=== PATIENT | male | born 1970 | race Caucasian/White ===

== ENCOUNTER 2020-04-09 13:46 | Outpatient (CLI) | payer OTHER | END 2020-04-09 23:59 | disposition home or self-care (01) | LOC: RAD 13:46 | DX: R13.12 Dysphagia, oropharyngeal phase (principal); K21.9 Gastro-esophageal reflux disease without esophagitis | CPT/HCPCS: 74230 ==

== ENCOUNTER 2022-10-15 15:56 | Outpatient (CLI) | payer OTHER ==
[~2022-10-15] VITALS: Ht 165.1 cm; Wt 65.8 kg
[2022-10-15] MEDS ORDERED: albuterol 2.5 MG/3 ML nebule NEB ONE (16:35)
[2022-10-15 16:42] VITALS: PULSE 83; RESP 12; O2SAT 95
== END 2022-10-15 23:59 | disposition home or self-care (01) ==
LOC: RT 15:56
PROVIDERS: ATTEND Chiropractor
DX: J40 Bronchitis, not specified as acute or chronic (principal); R94.2 Abnormal results of pulmonary function studies
CPT/HCPCS: 94060; 94760

== ENCOUNTER 2022-11-12 10:16 | Emergency (ER) | payer OTHER ==
[~2022-11-12] VITALS: Ht 154.9 cm; Wt 65.0 kg
[2022-11-12 11:08] LABS: BASOPHILS % (AUTO) 0.5 % (0-1); EOSINOPHILS # (AUTO) 0.2 X10'3 (0-0.9); EOSINOPHILS % (AUTO) 2.8 % (0-6); HEMATOCRIT 43.3 % (42.0-52.0); HEMOGLOBIN 14.9 g/dl (14.0-17.9); LYMPHOCYTES # (AUTO) 1.5 X10'3 (1.1-4.8); MEAN CORPUSCULAR HEMOGLOBIN 31.1 PG (27.0-31.0); MEAN CORPUSCULAR HGB CONC 34.3 g/dL (33.0-36.5); MEAN CORPUSCULAR VOLUME 90.5 FL (78-98); MEAN PLATELET VOLUME 8.8 FL (7.4-10.4); MONOCYTES # (AUTO) 0.6 X10'3 (0-0.9); MONOCYTES % (AUTO) 8.4 % (2-12); NEUTROPHILS # (AUTO) 4.6 X10'3 (1.8-7.7); NEUTROPHILS % (AUTO) 66.3 % (42-75); PLATELET COUNT 252 X10'3 (140-440); RED BLOOD COUNT 4.79 X10'6 (4.70-6.10)
[2022-11-12 11:15] LABS: BILIRUBIN,URINE NEGATIVE (Neg); CLARITY,URINE CLEAR (Clear); COLOR,URINE STRAW (Yellow); GLUCOSE, URINE 500 mg/dl (Neg); KETONES,URINE NEGATIVE (Neg); LEUKOCYTE ESTERASE ,URINE NEGATIVE (Neg); NITRITES, URINE NEGATIVE (Neg); OCCULT BLOOD,URINE NEGATIVE (Neg); PROTEIN,URINE NEGATIVE (Neg); UA COLLECTION TYPE NON-SPECIFIED; UROBILINOGEN,URINE 0.2 E.U/dL (0.2-1.0)
[2022-11-12 11:18] LABS: ALANINE AMINOTRANSFERASE 45 U/L (12-78); ALBUMIN 3.4 G/DL (3.4-5.0); ALBUMIN/GLOBULIN RATIO 0.9 (1.1-1.5); ALKALINE PHOSPHATASE 90 IU/L (46-116); ANION GAP 7 (8-16); ASPARTATE AMINO TRANSFERASE 20 U/L (10-37); BILIRUBIN,TOTAL 0.3 MG/DL (0.1-1.0); BLOOD UREA NITROGEN 9 MG/DL (7-18); BUN/CREATININE RATIO 10.2 (10.0-20.0); CALCIUM 9.1 MG/DL (8.5-10.1); CHLORIDE 102 MMOL/L (99-107); CREATININE 0.88 MG/DL (0.60-1.10); GLUCOSE 245 MG/DL (70-104); POTASSIUM 4.2 MMOL/L (3.5-5.1); SODIUM 138 MMOL/L (135-145); TOTAL CARBON DIOXIDE 29.3 MMOL/L (24-32); TOTAL PROTEIN 7.2 G/DL (6.4-8.2); eCRCL 73 ML/MIN; eGFR > 90 ML/MIN
[2022-11-12 12:36] VITALS: TEMP 97.6
[2022-11-12] MEDS ORDERED: PSYL1PAC9 PO (13:54)
[2022-11-12 14:03] VITALS: BP 144/85; PULSE 80; RESP 16; O2SAT 97
== END 2022-11-12 14:32 | disposition home or self-care (01) ==
LOC: ER 10:17
DX: R03.0 Elevated blood-pressure reading, without diagnosis of hypertension (principal); K59.00 Constipation, unspecified; R19.7 Diarrhea, unspecified; E11.9 Type 2 diabetes mellitus without complications; Z88.0 Allergy status to penicillin; Z88.1 Allergy status to other antibiotic agents; Z88.8 Allergy status to other drugs, medicaments and biological substances; Z91.018 Allergy to other foods; Z79.899 Other long term (current) drug therapy
CPT/HCPCS: 36415; 71045; 80053; 81003; 84145; 85025; 87040; 99284

== ENCOUNTER 2023-04-04 01:05 | Observation (INO) | payer OTHER, MEDICARE ==
[~2023-04-04] VITALS: Ht 165.1 cm; Wt 68.2 kg
[~2023-04-04 01:05] MED LIST: PSYL1PAC9 PO
[2023-04-04 02:30] LABS: BASOPHILS % (AUTO) 0.1 % (0-1); EOSINOPHILS # (AUTO) 0.2 X10'3 (0-0.9); MEAN CORPUSCULAR VOLUME 92.2 FL (78-98); MONOCYTES # (AUTO) 1.3 X10'3 (0-0.9); PLATELET COUNT 198 X10'3 (140-440)
[2023-04-04 02:31] LABS: EOSINOPHILS % (AUTO) 1.5 % (0-6); HEMATOCRIT 45.3 % (42.0-52.0); HEMOGLOBIN 15.3 g/dl (14.0-17.9); LYMPHOCYTES # (AUTO) 1.4 X10'3 (1.1-4.8); LYMPHOCYTES % (AUTO) 9.5 % (21-51); MEAN CORPUSCULAR HEMOGLOBIN 31.1 PG (27.0-31.0); MEAN CORPUSCULAR HGB CONC 33.8 g/dL (33.0-36.5); MEAN PLATELET VOLUME 10.3 FL (7.4-10.4); MONOCYTES % (AUTO) 9.1 % (2-12); NEUTROPHILS # (AUTO) 11.4 X10'3 (1.8-7.7); NEUTROPHILS % (AUTO) 79.8 % (42-75); RED BLOOD COUNT 4.92 X10'6 (4.70-6.10); WHITE BLOOD COUNT 14.3 X10'3 (4.5-11.0)
[2023-04-04] MEDS: normal saline 1000ml 1,000 ML IV ONE (02:34)
[2023-04-04 02:40] LABS: ALANINE AMINOTRANSFERASE 50 U/L (12-78); ALBUMIN 3.5 G/DL (3.4-5.0); ALBUMIN/GLOBULIN RATIO 0.9 (1.1-1.5); ALKALINE PHOSPHATASE 78 IU/L (46-116); ANION GAP 10 (8-16); ASPARTATE AMINO TRANSFERASE 12 U/L (10-37); BILIRUBIN,TOTAL 0.3 MG/DL (0.1-1.0); BLOOD UREA NITROGEN 18 MG/DL (7-18); BUN/CREATININE RATIO 19.1 (10.0-20.0); CHLORIDE 103 MMOL/L (99-107); CREATININE 0.94 MG/DL (0.60-1.10); GLUCOSE 239 MG/DL (70-104); POTASSIUM 4.3 MMOL/L (3.5-5.1); SODIUM 139 MMOL/L (135-145); TOTAL CARBON DIOXIDE 26.3 MMOL/L (24-32); TOTAL PROTEIN 7.2 G/DL (6.4-8.2); eCRCL 79 ML/MIN; eGFR 84 ML/MIN
[2023-04-04 02:49] LABS: LIPASE 24 U/L (16-77); PRO BRAIN NATRIURETIC PEPTIDE 64 PG/ML (0-125)
[2023-04-04] MEDS: HYDROcodone/acetaminophen 5mg/325mg tablet PO ONE (03:09)
[2023-04-04] MEDS ORDERED: iohexol 350MG/ML 100ml bottle IV ONE (03:30)
[2023-04-04] MEDS: morphine 4 MG/ML inj SYRINge IV ONE ×3 (04:50→13:28)
[2023-04-04 07:10] LABS: BILIRUBIN,URINE NEGATIVE (Neg); CLARITY,URINE CLEAR (Clear); COLOR,URINE YELLOW (Yellow); GLUCOSE, URINE 100 mg/dl (Neg); KETONES,URINE NEGATIVE (Neg); LEUKOCYTE ESTERASE ,URINE NEGATIVE (Neg); NITRITES, URINE NEGATIVE (Neg); OCCULT BLOOD,URINE NEGATIVE (Neg); PROTEIN,URINE NEGATIVE (Neg); UROBILINOGEN,URINE 0.2 E.U/dL (0.2-1.0)
[2023-04-04] MEDS: normal saline 1000ML IV soln IVB ONE ×2 (07:10→07:31)
[2023-04-04 07:27] LABS: UA COLLECTION TYPE CLN CATCH MIDSTREAM
[2023-04-04] MEDS: dexamethasone sod phosphate 10mg/ml inj IV STA (07:31)
[2023-04-04 07:33] LABS: URINE AMPHETAMINE SCREEN NEGATIVE (Neg); URINE BARBITUATE SCREEN NEGATIVE (Neg); URINE BENZODIAZEPINES SCREEN NEGATIVE (Neg); URINE CANNABINOID SCREEN NEGATIVE (Neg); URINE COCAINE SCREEN NEGATIVE (Neg); URINE METHADONE SCREEN NEGATIVE (Neg); URINE OPIATE SCREEN POSITIVE (Neg); URINE PHENCYCLIDINE SCREEN NEGATIVE (Neg)
[2023-04-04] MEDS: morphine 2 MG/ML inj. syringe IV ONE ×2 (09:45→19:12)
[2023-04-04] MEDS ORDERED: ALBU10.7 (13:41)
[2023-04-04] MEDS ORDERED: ALB0.5UD IH (13:41)
[2023-04-04] MEDS ORDERED: ATOR20TA PO (13:42)
[2023-04-04] MEDS ORDERED: CAPS60CR6 TOP (13:42)
[2023-04-04] MEDS ORDERED: CYAN500T71 PO (13:43)
[2023-04-04] MEDS ORDERED: INSU100V64 SQ (13:44)
[2023-04-04] MEDS ORDERED: LANTUS SUBCUT (13:44)
[2023-04-04] MEDS ORDERED: acetaminophen 325mg tablet PO PRN ×2 (13:45)
[2023-04-04] MEDS ORDERED: magnesium Cl slow-release 64mg tablet PO PRN (13:45)
[2023-04-04] MEDS ORDERED: HYDROcodone/acetaminophen 5mg/325mg tablet PO PRN (13:45)
[2023-04-04] MEDS ORDERED: potassium Cl 40MEQ/1/2NS 520ml 520 ML IV PRN (13:45)
[2023-04-04] MEDS ORDERED: potassium Cl 20 mEq SR tablet PO PRN ×2 (13:45)
[2023-04-04] MEDS ORDERED: ondansetron 4mg rapidly disintigrating tab PO PRN (13:45)
[2023-04-04] MEDS ORDERED: PANT-47 PO (13:45)
[2023-04-04] MEDS ORDERED: ondansetron/PF 4mg/2ml inj IV PRN (13:45)
[2023-04-04] MEDS ORDERED: magnesium 2GM in 50ml NS 50 ML IV PRN (13:45)
[2023-04-04] MEDS ORDERED: mag hydrox/Alum hydrox/simeth 30ml oral suspension PO PRN (13:45)
[2023-04-04] MEDS ORDERED: magnesium 4gm in 100ml NS 100 ML IV PRN (13:45)
[2023-04-04] MEDS ORDERED: MIRT-67 PO (13:45)
[2023-04-04] MEDS ORDERED: magnesium hydroxide 30ml (MOM) UD suspension PO PRN (13:45)
[2023-04-04] MEDS ORDERED: PSYL575P22 PO (13:46)
[2023-04-04] MEDS ORDERED: QUET25TA PO (13:46)
[2023-04-04] MEDS ORDERED: SILV50CR31 TOP (13:47)
[2023-04-04] MEDS ORDERED: TRAZ-251 PO (13:48)
[2023-04-04] MEDS: normal saline 1000ml 1,000 ML IV SCH (13:59)
[2023-04-04] MEDS ORDERED: albuterol 2.5 MG/3 ML nebule NEB PRN (14:00)
[2023-04-04] MEDS ORDERED: dextrose 50%-water 50ml dispensing syringe IV PRN ×2 (14:00)
[2023-04-04] MEDS ORDERED: DEXTROSE 15 GM of carb/4 tabs (each vial/BOTTLE has 4 tablets) PO PRN ×2 (14:00)
[2023-04-04] MEDS ORDERED: glucagon, human recombinant 1mg kit SUBCUT PRN (14:00)
[2023-04-04] MEDS: MESSAGE TO PHARMACY PO ONE (14:04)
[2023-04-04 17:12] VITALS: BP 122/69; PULSE 95; RESP 17; O2SAT 95
[2023-04-04 17:36] VITALS: TEMP 97.6
[2023-04-04 18:00] VITALS: BP 125/69; PULSE 90; RESP 17; TEMP 97.3; O2SAT 95
[2023-04-04] MEDS ORDERED: morphine/NS 1 mg/ml 50ml CADD 50 ML IV ONE (18:10)
[2023-04-04] MEDS ORDERED: PERFLUTREN PROTEIN-A MICROSPHR (Optison) 0.22 MG/ML 3ML VIAL IV ONE (18:25)
[2023-04-04] MEDS: insulin Lispro (HumaLOG) vial - multi-dose SQ SCH (19:24)
[2023-04-04 20:00] VITALS: BP_SYST 122; BP_SYST 139; BP_DIAS 66; BP_DIAS 86; PULSE 86; PULSE 95
[2023-04-04] MEDS: heparin, porcine 5000 units/ml vial SQ SCH (20:00)
[2023-04-04] MEDS: K and/or MAG REPLACEMENT MC SCH (20:00)
[2023-04-04] MEDS: mirtazapine 15mg tablet PO SCH (20:21)
[2023-04-04] MEDS: QUEtiapine 25mg tablet PO SCH (20:21)
[2023-04-04] MEDS: traZODone 50mg tablet PO SCH (20:21)
[2023-04-04] MEDS: insulin glargine (Lantus) pen - multi-dose SQ SCH (20:42)
[2023-04-04 20:58] VITALS: RESP 17; O2SAT 95
[2023-04-04] MEDS ORDERED: insulin glargine (Lantus) pen - multi-dose SQ SCH (21:00)
[2023-04-04 22:00] VITALS: BP 120/69; PULSE 9; RESP 16; TEMP 97.8; O2SAT 97
[2023-04-05 02:00] VITALS: BP 113/68; PULSE 89; RESP 17; TEMP 98.7; O2SAT 98
[2023-04-05] MEDS: psyllium seed 5.8 gm packet (sugar-free) PO SCH (08:00)
[2023-04-05] MEDS: cyanocobalamin 500mcg tablet PO SCH (08:00)
[2023-04-05] MEDS: atorvastatin 20mg tablet PO SCH (08:00)
[2023-04-05 08:05] LABS: BASOPHILS % (AUTO) 0.1 % (0-1); EOSINOPHILS % (AUTO) 0.1 % (0-6); HEMOGLOBIN 12.6 g/dl (14.0-17.9); LYMPHOCYTES # (AUTO) 1.2 X10'3 (1.1-4.8); LYMPHOCYTES % (AUTO) 14.4 % (21-51); MEAN CORPUSCULAR HEMOGLOBIN 31.4 PG (27.0-31.0); MEAN CORPUSCULAR HGB CONC 34.1 g/dL (33.0-36.5); MEAN CORPUSCULAR VOLUME 92.1 FL (78-98); MEAN PLATELET VOLUME 9.8 FL (7.4-10.4); MONOCYTES # (AUTO) 0.6 X10'3 (0-0.9); MONOCYTES % (AUTO) 6.7 % (2-12); NEUTROPHILS # (AUTO) 6.8 X10'3 (1.8-7.7); NEUTROPHILS % (AUTO) 78.7 % (42-75); PLATELET COUNT 174 X10'3 (140-440); RED BLOOD COUNT 4.02 X10'6 (4.70-6.10); RED CELL DISTRIBUTION WIDTH 13.1 % (11.5-14.5); WHITE BLOOD COUNT 8.6 X10'3 (4.5-11.0)
[2023-04-05 08:28] LABS: ALBUMIN 2.8 G/DL (3.4-5.0); ANION GAP 10 (8-16); BLOOD UREA NITROGEN 11 MG/DL (7-18); BUN/CREATININE RATIO 13.1 (10.0-20.0); CALCIUM 7.5 MG/DL (8.5-10.1); CHLORIDE 107 MMOL/L (99-107); CREATININE 0.84 MG/DL (0.60-1.10); GLUCOSE 245 MG/DL (70-104); MAGNESIUM 1.7 MG/DL (1.5-2.4); POTASSIUM 3.7 MMOL/L (3.5-5.1); SODIUM 141 MMOL/L (135-145); eCRCL 88 ML/MIN; eGFR > 90 ML/MIN
[2023-04-05 10:21] VITALS: BP 125/73; PULSE 87; RESP 16; TEMP 97.3; O2SAT 95
[2023-04-06] MEDS ORDERED: ASPI81TA52 PO (20:48)
[2023-04-06] MEDS ORDERED: ATOR20TA66 PO (20:49)
[2023-04-14 19:26] LABS: METANEPHRINE, PL <25.0 pg/mL (0.0-88.0); NORMETANEPHRINE, PL 48.3 pg/mL (0.0-244.0)
== END 2023-04-05 12:20 | disposition home or self-care (01) ==
LOC: ER 01:05 → ED HOLD 13:49 → EDBEDREQ 15:56 → PCU 3S 16:37
PROVIDERS: ADMIT Family Medicine; ATTEND Family Medicine
DX: I95.9 Hypotension, unspecified (principal); E11.65 Type 2 diabetes mellitus with hyperglycemia; F41.8 Other specified anxiety disorders; J45.909 Unspecified asthma, uncomplicated; I10 Essential (primary) hypertension; K76.0 Fatty (change of) liver, not elsewhere classified; G89.29 Other chronic pain; G90.9 Disorder of the autonomic nervous system, unspecified; F17.210 Nicotine dependence, cigarettes, uncomplicated; Z88.0 Allergy status to penicillin; Z85.51 Personal history of malignant neoplasm of bladder; Z79.899 Other long term (current) drug therapy
CPT/HCPCS: 36415; 71045; 71275; 74174; 80048; 80053; 80305; 81003; 82533; 82948; 83605; 83690; 83735; 83835; 83880; 84145; 84443; 84484; 85025; 87040; 87081; 93005; 93306; 93880; 96361; 96372; 96374; 96375; 96376; 99285; G0378; J1100; J1815; J2270; J3490; J7030; Q9967

== ENCOUNTER 2023-04-09 18:04 | Emergency (ER) | payer OTHER, MEDICARE ==
[~2023-04-09] VITALS: Ht 165.1 cm; Wt 80.8 kg
[~2023-04-09 18:04] MED LIST changes: +ALB0.5UD IH; +ALBU10.7; +ASPI81TA52 PO; +ATOR20TA66 PO; +CAPS60CR6 TOP; +CYAN500T71 PO; +INSU100V64 SQ; +LANTUS SUBCUT; +MIRT-67 PO; +PANT-47 PO; -PSYL1PAC9 PO; +PSYL575P22 PO; +QUET25TA PO; +SILV50CR31 TOP; +TRAZ-251 PO
[2023-04-09] MEDS ORDERED: iohexol 300mg/ml 100ml inj. ONE (18:38)
[2023-04-09 19:40] LABS: BASOPHILS % (AUTO) 0.4 % (0-1); EOSINOPHILS # (AUTO) 0.3 X10'3 (0-0.9); EOSINOPHILS % (AUTO) 2.9 % (0-6); HEMOGLOBIN 15.2 g/dl (14.0-17.9); LYMPHOCYTES # (AUTO) 2.1 X10'3 (1.1-4.8); LYMPHOCYTES % (AUTO) 21.9 % (21-51); MEAN CORPUSCULAR HEMOGLOBIN 31.6 PG (27.0-31.0); MEAN CORPUSCULAR HGB CONC 34.6 g/dL (33.0-36.5); MEAN CORPUSCULAR VOLUME 91.4 FL (78-98); MONOCYTES # (AUTO) 0.7 X10'3 (0-0.9); MONOCYTES % (AUTO) 7.2 % (2-12); NEUTROPHILS # (AUTO) 6.5 X10'3 (1.8-7.7); NEUTROPHILS % (AUTO) 67.6 % (42-75); PLATELET COUNT 227 X10'3 (140-440); RED BLOOD COUNT 4.82 X10'6 (4.70-6.10); RED CELL DISTRIBUTION WIDTH 13.3 % (11.5-14.5); WHITE BLOOD COUNT 9.7 X10'3 (4.5-11.0)
[2023-04-09 19:47] LABS: ALANINE AMINOTRANSFERASE 46 U/L (12-78); ALBUMIN 3.8 G/DL (3.4-5.0); ALKALINE PHOSPHATASE 76 IU/L (46-116); ANION GAP 7 (8-16); ASPARTATE AMINO TRANSFERASE 13 U/L (10-37); BILIRUBIN,TOTAL 0.3 MG/DL (0.1-1.0); BLOOD UREA NITROGEN 12 MG/DL (7-18); BUN/CREATININE RATIO 14.3 (10.0-20.0); CALCIUM 8.8 MG/DL (8.5-10.1); CHLORIDE 99 MMOL/L (99-107); CREATININE 0.84 MG/DL (0.60-1.10); GLUCOSE 125 MG/DL (70-104); POTASSIUM 3.8 MMOL/L (3.5-5.1); SODIUM 136 MMOL/L (135-145); TOTAL CARBON DIOXIDE 30.3 MMOL/L (24-32); TOTAL PROTEIN 7.7 G/DL (6.4-8.2); eCRCL 88 ML/MIN; eGFR > 90 ML/MIN
[2023-04-09 19:52] LABS: LIPASE 20 U/L (16-77)
[2023-04-09 20:10] LABS: BILIRUBIN,URINE NEGATIVE (Neg); CLARITY,URINE CLEAR (Clear); COLOR,URINE YELLOW (Yellow); GLUCOSE, URINE 100 mg/dl (Neg); KETONES,URINE NEGATIVE (Neg); LEUKOCYTE ESTERASE ,URINE NEGATIVE (Neg); NITRITES, URINE NEGATIVE (Neg); OCCULT BLOOD,URINE NEGATIVE (Neg); PH,URINE 6.5 (4.8-8.0); PROTEIN,URINE NEGATIVE (Neg); UROBILINOGEN,URINE 0.2 E.U/dL (0.2-1.0)
[2023-04-09 20:16] LABS: UA COLLECTION TYPE URINAL
[2023-04-09 20:37] VITALS: BP 140/78; PULSE 78; RESP 16; TEMP 98.4; O2SAT 96
== END 2023-04-09 20:40 | disposition home or self-care (01) ==
LOC: ER 18:06
DX: R10.31 Right lower quadrant pain (principal); J45.909 Unspecified asthma, uncomplicated; F41.9 Anxiety disorder, unspecified; F32.A Depression, unspecified; E11.9 Type 2 diabetes mellitus without complications; G89.29 Other chronic pain; Z98.890 Other specified postprocedural states; Z88.0 Allergy status to penicillin; Z88.1 Allergy status to other antibiotic agents; Z88.8 Allergy status to other drugs, medicaments and biological substances; Z79.899 Other long term (current) drug therapy; Z79.82 Long term (current) use of aspirin; Z79.2 Long term (current) use of antibiotics
CPT/HCPCS: 36415; 74177; 80053; 81003; 83690; 84484; 85025; 99285; J3490; Q9967

== ENCOUNTER 2023-06-29 13:49 | Emergency (ER) | payer OTHER, MEDICARE ==
[~2023-06-29] VITALS: Ht 165.1 cm; Wt 63.6 kg
[~2023-06-29 13:49] MED LIST changes: -ASPI81TA52 PO
[2023-06-29 13:54] VITALS: BP 103/56; PULSE 88; RESP 18; TEMP 97.8; O2SAT 97
[2023-06-29] MEDS: LIDOcaine 1% W/epiNEPHrine 1:100,000 20ml vial SQ ONE (15:21)
[2023-06-29 16:25] LABS: APPEARANCE,SYNOVIAL FLUID CLOUDY; COLOR,SYNOVIAL FLUID YELLOW; CRYSTAL ID, SYN FLD CA PYROPHOSPHATE; SYN RBC 1525 /CU MM (0); SYN WBC 5950 /CU MM (0-200)
[2023-06-29 16:26] LABS: SYNOVIAL FLUID CRYSTALS QT MODERATE
[2023-06-29 16:30] LABS: LYMPHOCYTES,SYNOVIAL FLUID 3 % (0-75); MONOCYTES,SYNOVIAL FLUID 1 % (0-0); NEUTROPHILS,SYNOVIAL FLUID 96 % (0-25)
[2023-06-29 16:52] LABS: GLUCOSE,SYNOVIAL FLUID 161 MG/DL
== END 2023-06-29 16:49 | disposition home or self-care (01) ==
LOC: ER 13:50
DX: M25.462 Effusion, left knee (principal); J45.909 Unspecified asthma, uncomplicated; E11.9 Type 2 diabetes mellitus without complications; G89.29 Other chronic pain; M54.9 Dorsalgia, unspecified; F41.9 Anxiety disorder, unspecified; F32.9 Major depressive disorder, single episode, unspecified; Z88.0 Allergy status to penicillin; Z88.8 Allergy status to other drugs, medicaments and biological substances; Z91.018 Allergy to other foods
CPT/HCPCS: 20610; 73564; 82945; 87070; 87075; 87102; 89051; 89060; 99284; A6449

== ENCOUNTER → 2023-08-12 | Outpatient (CLI) | payer OTHER, MEDICARE | END | disposition home or self-care (01) | LOC: MRI 09:27 | PROVIDERS: ATTEND Anesthesiology Pain Medicine | DX: M48.03 Spinal stenosis, cervicothoracic region (principal); M47.812 Spondylosis without myelopathy or radiculopathy, cervical region; G89.4 Chronic pain syndrome; M54.16 Radiculopathy, lumbar region; M25.512 Pain in left shoulder; M50.323 Other cervical disc degeneration at C6-C7 level; R20.9 Unspecified disturbances of skin sensation; M62.81 Muscle weakness (generalized); M79.602 Pain in left arm; M79.601 Pain in right arm | CPT/HCPCS: 72141 ==

== ENCOUNTER 2023-10-26 12:27 | Emergency (ER) | payer OTHER, MEDICARE ==
[2023-10-26 13:05] VITALS: BP 134/78; PULSE 68; RESP 18; TEMP 97.7; O2SAT 97
== END 2023-10-26 13:08 | disposition home or self-care (01) ==
LOC: ER 12:28
DX: R59.0 Localized enlarged lymph nodes (principal); J45.909 Unspecified asthma, uncomplicated; E11.9 Type 2 diabetes mellitus without complications; G89.29 Other chronic pain; M54.9 Dorsalgia, unspecified; F41.9 Anxiety disorder, unspecified; F32.A Depression, unspecified; Z88.0 Allergy status to penicillin; Z88.1 Allergy status to other antibiotic agents; Z88.8 Allergy status to other drugs, medicaments and biological substances; Z79.899 Other long term (current) drug therapy; Z79.4 Long term (current) use of insulin; Z98.890 Other specified postprocedural states
CPT/HCPCS: 99282

== ENCOUNTER 2023-11-08 20:30 | Emergency (ER) | payer OTHER, MEDICARE ==
[2023-11-08 21:04] VITALS: TEMP 98.4
[2023-11-08 21:06] LABS: BASOPHILS % (AUTO) 0.2 % (0-1); EOSINOPHILS # (AUTO) 0.1 X10'3 (0-0.9); EOSINOPHILS % (AUTO) 1.5 % (0-6); HEMATOCRIT 42.2 % (42.0-52.0); HEMOGLOBIN 14.4 g/dl (14.0-17.9); LYMPHOCYTES # (AUTO) 1.2 X10'3 (1.1-4.8); LYMPHOCYTES % (AUTO) 14.2 % (21-51); MEAN CORPUSCULAR HEMOGLOBIN 31.2 PG (27.0-31.0); MEAN CORPUSCULAR HGB CONC 34.2 g/dL (33.0-36.5); MEAN CORPUSCULAR VOLUME 91.2 FL (78-98); MEAN PLATELET VOLUME 9.5 FL (7.4-10.4); MONOCYTES # (AUTO) 0.6 X10'3 (0-0.9); NEUTROPHILS # (AUTO) 6.1 X10'3 (1.8-7.7); NEUTROPHILS % (AUTO) 76.1 % (42-75); PLATELET COUNT 210 X10'3 (140-440); RED BLOOD COUNT 4.62 X10'6 (4.70-6.10); RED CELL DISTRIBUTION WIDTH 13.4 % (11.5-14.5); WHITE BLOOD COUNT 8.1 X10'3 (4.5-11.0)
[2023-11-08 21:30] LABS: ALBUMIN 3.6 G/DL (3.4-5.0); ANION GAP 10 (8-16); BLOOD UREA NITROGEN 17 MG/DL (7-18); BUN/CREATININE RATIO 17.3 (10.0-20.0); CALCIUM 8.9 MG/DL (8.5-10.1); CHLORIDE 104 MMOL/L (99-107); CREATININE 0.98 MG/DL (0.60-1.10); POTASSIUM 3.3 MMOL/L (3.5-5.1); PRO BRAIN NATRIURETIC PEPTIDE 113 PG/ML (0-125); SODIUM 141 MMOL/L (135-145); TOTAL CARBON DIOXIDE 27.4 MMOL/L (24-32); eGFR 80 ML/MIN
[2023-11-08 21:32] LABS: GLUCOSE 247 MG/DL (70-104)
[2023-11-08] MEDS: potassium Cl 20 mEq SR tablet PO STA (22:19)
[2023-11-08] MEDS: ketorolac trometh 15mg/ml vial 15 MG/ML ML IV ONE (22:20)
[2023-11-08] MEDS: proCHLORperazine 10 MG/2 ml inj IV ONE (22:20)
[2023-11-08 22:51] VITALS: BP 104/72; PULSE 88; RESP 14; O2SAT 99
== END 2023-11-08 22:53 | disposition home or self-care (01) ==
LOC: ER 20:30
DX: R51.9 Headache, unspecified (principal); R07.9 Chest pain, unspecified; M54.2 Cervicalgia; R11.0 Nausea; J45.909 Unspecified asthma, uncomplicated; E11.9 Type 2 diabetes mellitus without complications; G89.29 Other chronic pain; M54.9 Dorsalgia, unspecified; F32.A Depression, unspecified; F41.9 Anxiety disorder, unspecified; Z88.0 Allergy status to penicillin; Z88.1 Allergy status to other antibiotic agents; Z88.8 Allergy status to other drugs, medicaments and biological substances; Z79.899 Other long term (current) drug therapy; Z79.4 Long term (current) use of insulin; Z98.890 Other specified postprocedural states
CPT/HCPCS: 36415; 71045; 80048; 83880; 84484; 85025; 93005; 96374; 96375; 99285; J0780; J1885

== ENCOUNTER 2024-02-22 22:54 | Emergency (ER) | payer OTHER, MEDICARE ==
[~2024-02-22] VITALS: Ht 165.1 cm; Wt 78.2 kg
[2024-02-23] MEDS ORDERED: iohexol 300mg/ml 100ml inj. ONE (00:10)
[2024-02-23] MEDS: hydrALAZINE 20mg/ml inj. IV ONE (01:02)
[2024-02-23 01:47] LABS: BASOPHILS % (AUTO) 0.2 % (0-1); EOSINOPHILS # (AUTO) 0.1 X10'3 (0-0.9); EOSINOPHILS % (AUTO) 1.3 % (0-6); HEMATOCRIT 39.5 % (42.0-52.0); HEMOGLOBIN 13.6 g/dl (14.0-17.9); LYMPHOCYTES # (AUTO) 0.6 X10'3 (1.1-4.8); LYMPHOCYTES % (AUTO) 8.1 % (21-51); MEAN CORPUSCULAR HEMOGLOBIN 31.5 PG (27.0-31.0); MEAN CORPUSCULAR HGB CONC 34.5 g/dL (33.0-36.5); MEAN CORPUSCULAR VOLUME 91.2 FL (78-98); MEAN PLATELET VOLUME 9.8 FL (7.4-10.4); MONOCYTES # (AUTO) 0.8 X10'3 (0-0.9); MONOCYTES % (AUTO) 10.7 % (2-12); NEUTROPHILS % (AUTO) 79.7 % (42-75); PLATELET COUNT 185 X10'3 (140-440); RED BLOOD COUNT 4.33 X10'6 (4.70-6.10); RED CELL DISTRIBUTION WIDTH 12.8 % (11.5-14.5); WHITE BLOOD COUNT 7.5 X10'3 (4.5-11.0)
[2024-02-23 02:00] LABS: ALANINE AMINOTRANSFERASE 44 U/L (12-78); ALBUMIN 3.4 G/DL (3.4-5.0); ALKALINE PHOSPHATASE 64 IU/L (46-116); ANION GAP 7 (8-16); ASPARTATE AMINO TRANSFERASE 14 U/L (10-37); BILIRUBIN,TOTAL 0.4 MG/DL (0.1-1.0); BLOOD UREA NITROGEN 15 MG/DL (7-18); BUN/CREATININE RATIO 12.6 (10.0-20.0); CALCIUM 8.4 MG/DL (8.5-10.1); CHLORIDE 105 MMOL/L (99-107); CREATININE 1.19 MG/DL (0.60-1.10); GLUCOSE 203 MG/DL (70-104); LIPASE 23 U/L (16-77); POTASSIUM 3.7 MMOL/L (3.5-5.1); SODIUM 139 MMOL/L (135-145); TOTAL PROTEIN 6.9 G/DL (6.4-8.2); eCRCL 62 ML/MIN; eGFR 64 ML/MIN
[2024-02-23] MEDS: acetaminophen 325mg tablet PO ONE (02:03)
[2024-02-23] MEDS: ketorolac trometh 30MG/ML vial 30 MG/ML VIAL IV ONE (02:13)
[2024-02-23] MEDS ORDERED: TAM75C PO (02:16)
[2024-02-23 02:37] VITALS: BP 101/58; PULSE 82; RESP 16; TEMP 99; O2SAT 98
== END 2024-02-23 02:39 | disposition home or self-care (01) ==
LOC: ER 22:55
DX: U07.1 COVID-19 (principal); E11.9 Type 2 diabetes mellitus without complications; R10.9 Unspecified abdominal pain; J45.909 Unspecified asthma, uncomplicated; F32.A Depression, unspecified; F41.9 Anxiety disorder, unspecified; Z88.0 Allergy status to penicillin; Z88.1 Allergy status to other antibiotic agents; Z88.8 Allergy status to other drugs, medicaments and biological substances; Z98.890 Other specified postprocedural states; Z79.4 Long term (current) use of insulin
CPT/HCPCS: 36415; 74177; 80053; 83690; 84145; 85025; 87502; 87503; 87811; 96374; 99285; J1885; Q9967; A4615